=== PATIENT | female | born 1965 | race Caucasian/White ===

== ENCOUNTER 2017-10-12 18:33 | Emergency (ER) | payer OTHER ==
[~2017-10-12] VITALS: Ht 147.3 cm; Wt 59.8 kg
[2017-10-12 19:07] LABS: HEMATOCRIT 40.2 % (36.0-46.0); HEMOGLOBIN 13.3 G/DL (11.9-15.5); MCH 28.4 PG (29.0-34.0); MCHC 33.1 G/DL (30.0-36.0); MCV 85.9 FL (83-99); PLATELET COUNT 221 K/uL (156-360); RBC DIS.WIDTH-CV 13.4 % (11.8-14.6); RBC DIS.WIDTH-SD 42.4 % (39-53); RED BLOOD COUNT 4.68 M/uL (3.80-5.20); WHITE BLOOD COUNT 9.2 K/uL (4.1-10.2)
[2017-10-12 19:17] LABS: CHLORIDE 106 mEq/L (99-109); POTASSIUM 4.6 mEq/L (3.7-5.4); SODIUM 138 mEq/L (136-147)
[2017-10-12 19:23] LABS: CREATININE 1.1 mg/dL (0.6-1.3)
[2017-10-12 19:24] LABS: GFR ESTIMATE (CALCULATED) 56 mL/min/; GLUCOSE 499 mg/dL (70-99); UREA NITROGEN (BUN) 13 mg/dL (9-23)
[2017-10-12 19:32] LABS: TROP-I INTERPRETATION NEGATIVE; TROPONIN-I < 0.01 ng/mL (0.0-0.30)
[2017-10-12] MEDS ORDERED: ZITHROMAX Z-PA250 MG PO (19:57)
[2017-10-12 20:35] VITALS: BP 155/90
== END 2017-10-12 20:35 | disposition home or self-care (01) ==
LOC: EME 18:33
PROVIDERS: Emergency Medicine Emergency Medical Services
DX: J06.9 Acute upper respiratory infection, unspecified (principal); E11.65 Type 2 diabetes mellitus with hyperglycemia; Z79.4 Long term (current) use of insulin; Z96.41 Presence of insulin pump (external) (internal)
CPT/HCPCS: 80048; 82010; 84484; 85027; 99281; 99284

== ENCOUNTER 2017-10-22 19:08 | Emergency (ER) | payer OTHER ==
[~2017-10-22] VITALS: Ht 149.9 cm; Wt 56.1 kg
[~2017-10-22 19:08] MED LIST: ZITHROMAX Z-PA250 MG PO
[2017-10-22 19:47] LABS: HEMATOCRIT 40.9 % (36.0-46.0); HEMOGLOBIN 13.5 G/DL (11.9-15.5); MCH 28.3 PG (29.0-34.0); MCV 85.7 FL (83-99); PLATELET COUNT 228 K/uL (156-360); RBC DIS.WIDTH-CV 13.5 % (11.8-14.6); RBC DIS.WIDTH-SD 42.5 % (39-53); RED BLOOD COUNT 4.77 M/uL (3.80-5.20)
[2017-10-22 19:57] LABS: CHLORIDE 111 mEq/L (99-109); POTASSIUM 3.5 mEq/L (3.7-5.4); SODIUM 143 mEq/L (136-147)
[2017-10-22 19:59] LABS: GLUCOSE 108 mg/dL (70-99)
[2017-10-22 20:03] LABS: CREATININE 0.9 mg/dL (0.6-1.3); GFR ESTIMATE (CALCULATED) > 59 mL/min/
[2017-10-22 20:04] LABS: UREA NITROGEN (BUN) 19 mg/dL (9-23)
[2017-10-22 20:07] LABS: TROP-I INTERPRETATION NEGATIVE; TROPONIN-I < 0.01 ng/mL (0.0-0.30)
[2017-10-22 21:52] LABS: D-DIMER ELISA < 150.00 ng/mLDDU (<230)
[2017-10-22] MEDS ORDERED: PROVENTIL HFA6.7 GM IH (23:13)
[2017-10-22] MEDS ORDERED: PREDNISONE50 MG PO (23:13)
[2017-10-22 23:59] VITALS: BP 151/76
== END 2017-10-23 00:18 | disposition home or self-care (01) ==
LOC: EME 19:08
DX: J98.01 Acute bronchospasm (principal)
CPT/HCPCS: 71046; 80048; 83880; 84484; 85027; 85379; 93005; 94640; 99281; 99285; J2930; J7030

== ENCOUNTER 2018-02-05 05:41 | Day surgery (SDC) | payer OTHER ==
[~2018-02-05] VITALS: Ht 152.4 cm; Wt 54.4 kg
[~2018-02-05 05:41] MED LIST changes: +BAYER CHEWABLE81 MG PO; +CERAVE355 ML TP; +COZAAR25 MG PO; +CYMBALTA60 MG PO; +IMODIUM A-D2 M2 PO; +INSULIN PUMP MC; +IRON159 MG PO; +MYRBETRIQ50 MG PO; +NITROSTAT0.3 MG SL; +PRAVACHOL40 MG PO; +PREDNISONE50 MG PO; +PRESERVISION T1 EACH PO; +PROVENTIL HFA6.7 GM IH; +SYNTHROID50 MCG PO; +TOPAMAX25 MG PO
[2018-02-05 06:00] VITALS: BP 141/69
[2018-02-05 11:42] VITALS: BP 93/55
[2018-02-05 12:40] VITALS: BP 108/53
[2018-02-05 14:08] VITALS: BP 101/57
== END 2018-02-05 14:37 | disposition home or self-care (01) ==
LOC: SDC 05:41
PROVIDERS: Orthopaedic Surgery Hand Surgery
DX: T84.418A Breakdown (mechanical) of other internal orthopedic devices, implants and grafts, initial encounter (principal); S52.532A Colles' fracture of left radius, initial encounter for closed fracture; I10 Essential (primary) hypertension; E11.9 Type 2 diabetes mellitus without complications; Z96.41 Presence of insulin pump (external) (internal); G40.909 Epilepsy, unspecified, not intractable, without status epilepticus; Z87.828 Personal history of other (healed) physical injury and trauma; Z96.652 Presence of left artificial knee joint; Z82.49 Family history of ischemic heart disease and other diseases of the circulatory system; Z83.3 Family history of diabetes mellitus; Z84.1 Family history of disorders of kidney and ureter; Z79.82 Long term (current) use of aspirin; Z88.0 Allergy status to penicillin; Z91.048 Other nonmedicinal substance allergy status; W18.30XA Fall on same level, unspecified, initial encounter; Y93.9 Activity, unspecified; Y92.008 Other place in unspecified non-institutional (private) residence as the place of occurrence of the external cause
CPT/HCPCS: 73100; 76000; 82948; C1713; J0131; J0330; J0690; J1170; J1815; J2250; J2405; J3010; S0020